=== PATIENT | female | born 1975 | race Native Hawaiian/Other Pacific Islander ===

== ENCOUNTER 2023-02-22 07:51 | Day surgery (SDC) | payer BC, OTHER ==
[2023-02-22 08:26] LABS: *URINE HCG, QUAL NEGATIVE (NEGATIVE)
[2023-02-22] MEDS ORDERED: PROPOFOL 200 MG/20 ML BOTTLE ONE (11:00)
[2023-02-22 12:53] VITALS: TEMP 98.2
== END 2023-02-22 13:03 | disposition home or self-care (01) ==
LOC: DS 07:51
PROVIDERS: ATTEND Surgery
DX: Z12.11 Encounter for screening for malignant neoplasm of colon (principal); R13.10 Dysphagia, unspecified; K44.9 Diaphragmatic hernia without obstruction or gangrene; K29.70 Gastritis, unspecified, without bleeding; K63.89 Other specified diseases of intestine; Z80.0 Family history of malignant neoplasm of digestive organs; I10 Essential (primary) hypertension; Z79.899 Other long term (current) drug therapy; Z98.890 Other specified postprocedural states
CPT/HCPCS: 43239; 45378; 84703; 88305; 88313; 88342; J7120; A4663; J3490